=== PATIENT | female | born 1990 | race Caucasian/White ===

== ENCOUNTER 2016-06-11 12:53 | Inpatient (IN) | payer OTHER ==
[2016-06-11 14:14] LABS: HEMOGLOBIN 9.9 gm/dl (12.3-15.3); RED BLOOD COUNT 3.86 M/UL (4.00-5.10)
[2016-06-11 14:36] LABS: BUN/CREATININE RATIO 27 (0-10)
[2016-06-12 03:05] LABS: HEMOGLOBIN 9.4 gm/dl (12.3-15.3)
== END 2016-06-13 19:44 | disposition home or self-care (01) | DRG 765 ==
LOC: GENOP 12:53 → OB 16:17
PROVIDERS: ADMIT Obstetrics & Gynecology
PROC: 10D00Z1 Extraction of Products of Conception, Low, Open Approach (ICD-10-PCS; principal; 2016-06-11 17:25)
DX: O14.04 Mild to moderate pre-eclampsia, complicating childbirth (principal); O40.3XX0 Polyhydramnios, third trimester, not applicable or unspecified; O34.211 Maternal care for low transverse scar from previous cesarean delivery; O36.63X0 Maternal care for excessive fetal growth, third trimester, not applicable or unspecified; O99.334 Smoking (tobacco) complicating childbirth; O99.284 Endocrine, nutritional and metabolic diseases complicating childbirth; O99.02 Anemia complicating childbirth; E03.9 Hypothyroidism, unspecified; F17.210 Nicotine dependence, cigarettes, uncomplicated; Z37.0 Single live birth; Z3A.37 37 weeks gestation of pregnancy
CPT/HCPCS: 36415; 80053; 81001; 82800; 83615; 84550; 85014; 85018; 85025; 90715; 94640; 94664; C9113; J0690; J2300; J2590; J2765; J3430; J7050; J7120; Q2039

== ENCOUNTER → 2016-12-09 | Outpatient (CLI) | payer OTHER | LOC: RAD 07:10 | DX: Z30.49 Encounter for surveillance of other contraceptives (principal); Z98.51 Tubal ligation status | CPT/HCPCS: 58340; 74740; C2628; Q9962 ==